=== PATIENT | male | born 1965 | race Hispanic/Latino ===

== ENCOUNTER 2017-04-11 07:08 | Observation (INO) | payer OTHER ==
--- NOTE | 2017-04-11 07:46 | ED PDOC ---
Arrival/HPI - General Time Seen by Provider: 04/11/17 07:41 Historian: Patient - History of Present Illness Narrative History of Present Illness (Text): 04/11/17 07:41 A 52 year old male, whose past medical history includes smoking, hypertension and hyperlipidemia, presents to the emergency department complaining of intermittent exertional chest pain since yesterday. Patient describes the pain as a pressure sensation. Patient denies any fever, chills, nausea, vomiting, diarrhea, abdominal pain, shortness of breath, cough or any other complaints. Patient reports he had a failed stress test done 1 week ago. PMD: Dr. Salazar Policy Adviser: Dr. Mason Time/Duration: Other (Yesterday) Symptom Course: Unchanged Quality: Other Context: Home Past Medical History - Provider Review Nursing Documentation Reviewed: Yes - Cardiac Hx Hypertension: Yes - Pulmonary Hx Respiratory Disorders: No - Neurological Hx Neurological Disorder: No - HEENT Hx HEENT Disorder: No - Renal Hx Renal Disorder: No - Endocrine/Metabolic Hx Endocrine Disorders: No - Hematological/Oncological Hx Blood Disorders: No - Integumentary Hx Dermatological Disorder: No - Musculoskeletal/Rheumatological Hx Musculoskeletal Disorders: No - Gastrointestinal Hx Gastrointestinal Disorders: Yes Hx Gastroesophageal Reflux: Yes - Genitourinary/Gynecological Hx Genitourinary Disorders: No - Psychiatric Hx Psychophysiologic Disorder: No Hx Depression: No Hx Emotional Abuse: No Hx Physical Abuse: No Hx Substance Use: No - Surgical History Hx Orthopedic Surgery: Yes - Suicidal Assessment Feels Threatened In Home Enviroment: No Family/Social History - Physician Review Nursing Documentation Reviewed: Yes Family/Social History: No Known Family HX Smoking Status: Heavy Smoker > 10 Cigarettes Daily Hx Alcohol Use: No Hx Substance Use: No Hx Substance Use Treatment: No Allergies/Home Meds Allergies/Adverse Reactions: Allergies No Known Allergies Allergy (Verified 04/11/17 07:19) Home Medications: Home Meds Medication Instructions Recorded Confirmed Aspirin [Aspir 81] 81 mg PO DAILY 05/09/12 04/11/17 Lansoprazole [Prevacid] 15 mg PO DAILY 11/13/16 04/11/17 Lisinopril [Zestril] 10 mg PO DAILY 11/13/16 04/11/17 Meloxicam [Mobic] 15 mg PO DAILY 11/13/16 04/11/17 Physical Exam - Physical Exam Narrative Physical Exam (Text): - Review of Systems Constitutional: Normal. absent: Fatigue, Weight Change, Fevers Eyes: Normal ENT: Normal Respiratory: Normal absent: SOB, Cough, Sputum Cardiovascular: (+) Chest pain absent: Palpitations, Syncope Gastrointestinal: Normal absent: Abdominal pain, Diarrhea, Nausea, Vomiting Genitourinary: Normal. absent: Dysuria, Frequency, Hematuria Musculoskeletal: Normal. absent: Arthralgias, Back Pain, Neck Pain Skin: Normal Neurological: Normal absent: Focal Weakness Endocrine: Normal Hemo/Lymphatic: Normal Psychiatric: Normal - Physical exam Patient appears age appropriate, speaking full sentences without difficulty - Systems Exam Head: Present: Atraumatic, Normocephalic Pupils: Present: PERRL Extraocular Muscles: Present: EOMI Conjunctiva: Present: Normal Mouth: Present: Moist Mucous Membranes Neck: Present: Normal Range of Motion. No: MIDLINE TENDERNESS, Paraspinal Tenderness Respiratory/Chest: Present: Clear to Auscultation, Good Air Exchange. No: Respiratory Distress, Accessory Muscle Use, Tachypnic Cardiovascular: Present: Regular Rate and Rhythm, Normal S1, S2, Peripheral Pulses Present. No: Murmurs Abdomen: Present: Normal Bowel Sounds, No: Tenderness, Peritoneal Signs, Rebound, Guarding, Distention Back: Present: Normal Inspection. No: Midline Tenderness, Paraspinal Tenderness Upper Extremity: Present: Normal Inspection. No: Cyanosis, Edema Lower Extremity: Present: Normal Inspection. No: Edema Neurological: Present: GCS=15, Speech Normal, cranial nerves II through XII fully intact with no cerebellar abnormality, neuro-sensory fully intact. No focal neurological deficits. Skin: Present: Warm, Dry, Normal Color. No: Rashes Lymphatic: Present: OX3, NI, NC Psychiatric: Present: Alert, Oriented x 3, Normal Insight, Normal Concentration Vital Signs Reviewed: Yes Vital Signs Temp Pulse Resp BP Pulse Ox 04/11/17 09:43 77 18 114/92 H 98 04/11/17 07:08 98.2 F 77 22 159/90 H 99 Temperature: Afebrile Blood Pressure: Hypertensive Pulse: Regular Respiratory Rate: Normal Appearance: Positive for: Well-Appearing, Non-Toxic, Comfortable Pain Distress: None Mental Status: Positive for: Alert and Oriented X 3 Medical Decision Making ED Course and Treatment: 04/11/17 07:41 Impression: A 52 year old male with intermittent exertional chest pressure. Physical exam unremarkable. Plan: -- Chest xray -- EKG -- Labs -- Aspirin and Nitroglycerin -- Reassess and disposition Progress Notes: EKG shows NSR at [address]-segment elevations, normal intervals. Interpreted by me. 04/11/17 09:29 Chest X-ray read and interpreted by me, which shows no cardiomegaly, no pneumothorax, no effusions. 04/11/17 09:[address] Salazar, accepted pt to his service for tele/obs, Dr. Ramos on consult. pt in no distress at this time, aware of and agrees with plan 04/11/17 10:[address] Ramos, who is aware of patients case. - Lab Interpretations Lab Results: 04/11/17 07:30 04/11/17 07:30 Lab Results 04/11/17 07:30: Sodium 141, Potassium 4.2, Chloride 106, Carbon Dioxide 27, Anion Gap 12, BUN 21, Creatinine 0.8, Est GFR ( Amer) > 60, Est GFR (Non- Af Amer) > 60, Random Glucose 106, Calcium 9.2, Total Bilirubin 0.5, AST 26, ALT 49, Alkaline Phosphatase 50, Lactate Dehydrogenase 391, Total Creatine Kinase 213, Troponin I < 0.01, NT-Pro-B Natriuret Pep 29.4, Total Protein 7.0, Albumin 4.2, Globulin 2.9, Albumin/Globulin Ratio 1.4 04/11/17 07:30: PT 10.4, INR 0.96, APTT 29.9 04/11/17 07:30: WBC 4.8, RBC 5.07, Hgb 15.4, Hct 44.4, MCV 87.6, MCH 30.4, MCHC 34.7, RDW 14.2, Plt Count 161, MPV 11.0, Gran % 61.6, Lymph % (Auto) 25.6, [place] % (Auto) 8.2 H, Eos % (Auto) 4.4, Baso % (Auto) 0.2, Gran # 2.94, Lymph # 1.2, [place] # 0.4, Eos # 0.2, Baso # 0.01 I have reviewed the lab results: Yes - RAD Interpretation Radiology Orders: 06/12/17 07:46 CHEST PORTABLE [RAD] Stat - Medication Orders Current Medication Orders: Sodium Chloride (Sodium Chloride 0.9%) 1,000 mls @ 100 mls/hr IV .Q10H DINAH Last Admin: 04/11/17 10:15 Dose: 100 mls/hr Discontinued Medications Aspirin (Aspirin Chewable) 324 mg PO STAT STA Stop: 04/11/17 07:46 Last Admin: 04/11/17 08:07 Dose: 324 mg Nicotine (Nicoderm Cq) 1 patch TD DAILY STA Stop: 04/11/17 07:49 Last Admin: 04/11/17 08:06 Dose: 1 patch Nitroglycerin (Nitrostat Sl Tab) 0.3 mg SL STAT STA Stop: 04/11/17 07:46 Last Admin: 04/11/17 08:07 Dose: 0.3 mg - Scribe Statement The provider has reviewed the documentation as recorded by the Jayla Gallardo Provider Scribe Attestation: All medical record entries made by the Scribguerline were at my direction and personally dictated by me. I have reviewed the chart and agree that the record accurately reflects my personal performance of the history, physical exam, medical decision making, and the department course for this patient. I have also personally directed, reviewed, and agree with the discharge instructions and disposition. Disposition/Present on Arrival - Present on Arrival Any Indicators Present on Arrival: No History of DVT/PE: No History of Uncontrolled Diabetes: No Urinary Catheter: No History Surgical Site Infection Following: None - Disposition Have Diagnosis and Disposition been Completed?: Yes Diagnosis: Chest pain Disposition: HOSPITALIZED Disposition Time: 09:36 Patient Plan: Observation Patient Problems: Current Active Problems Problem Status Onset Chest pain Acute Condition: FAIR
[2017-04-11 08:10] LABS: ADD MANUAL DIFF? NO
[2017-04-11 08:14] LABS: BASO # 0.01 K/mm3 (0.0-2.0); BASO % 0.2 % (0.0-3.0); EOS # 0.2 (0.0-0.7); EOS % 4.4 % (1.5-5.0); GRAN # 2.94 (1.4-6.5); GRAN % 61.6 % (50.0-68.0); HEMATOCRIT 44.4 % (42.0-52.0); LYMPH # 1.2 (1.2-3.4); LYMPH % 25.6 % (22.0-35.0); MEAN CELL VOLUME 87.6 fL (80.0-105.0); MEAN CORPUSCULAR HEMOGLOBIN 30.4 pg (25.0-35.0); MEAN CORPUSCULAR HGB CONC 34.7 g/dl (31.0-37.0); MONO # 0.4 (0.1-0.6); MONO % 8.2 % (1.0-6.0); PLATELET COUNT 161 10^3/uL (120.0-450.0); RED CELL DISTRIBUTION WIDTH 14.2 % (11.5-14.5); WHITE BLOOD COUNT 4.8 10^3/ul (4.5-11.0)
[2017-04-11 08:22] LABS: ALB/GLOB RATIO 1.4 (1.1-1.8); ALKALINE PHOSPHATASE 50 U/L (38-133); ALT/SGPT 49 U/L (7-56); AST/SGOT 26 U/L (15-59); BILIRUBIN,TOTAL 0.5 mg/dL (0.2-1.3); BLOOD UREA NITROGEN 21 mg/dL (7-21); CALCIUM 9.2 mg/dL (8.4-10.5); CARBON DIOXIDE 27 mmol/L (21-33); CHLORIDE 106 mmol/L (98-107); GFR AFRICAN-AMERICAN > 60; GLUCOSE,RANDOM 106 mg/dL (70-110); INR 0.96 (0.93-1.08); PARTIAL THROMBOPLASTIN TIME 29.9 Seconds (23.7-30.8); POTASSIUM 4.2 mmol/L (3.6-5.0); SODIUM 141 mmol/L (132-148)
[2017-04-11 08:34] LABS: TROPONIN I < 0.01 ng/mL
--- NOTE | 2017-04-11 09:51 | RAD ---
HISTORY: cough COMPARISON: 12/05/2013 FINDINGS: LUNGS: No active pulmonary disease. PLEURA: No significant pleural effusion identified, no pneumothorax apparent. CARDIOVASCULAR: Normal. OSSEOUS STRUCTURES: No significant abnormalities. VISUALIZED UPPER ABDOMEN: Normal. OTHER FINDINGS: None. IMPRESSION: No active disease.
[2017-04-11] MEDS: Sodium Chloride 0.9% 1,000 ML IV SCH (10:15)
[2017-04-11 12:42] VITALS: O2SAT 96
--- NOTE | 2017-04-11 14:59 | CARD ---
APPROVED REPORT EKG Measurement Heart [id number] [place] [id number] [id number] <Conclusion> Normal sinus rhythm Normal ECG
[2017-04-11] MEDS ORDERED: Enoxaparin 120 mg Syringe SC STA (15:04)
[2017-04-11 16:41] VITALS: BMI 39.4
[2017-04-11] MEDS ORDERED: Pneumococcal 23-Valent Vaccine IM ONE (16:41)
--- NOTE | 2017-04-11 17:53 | HP ---
HISTORY OF PRESENT ILLNESS: The patient is a 52-year-old male with past medical history of hypertens ion and hypercholesterolemia, who presents to the Emergency Department today with exertional chest pa in of one day's duration, which is intermittent and nonradiating. There is no nausea, no vomiting, n o diaphoresis. The patient had a stress test done on 04/06/2017 which was abnormal and showed partiall y reversible distal anterior/apical and basal inferior defects suspicious for ischemia. The patient will be admitted to telemetry for further evaluation and management. PAST MEDICAL HISTORY: Includes hypertension, hypercholesterolemia, COPD, asthma and gastroesophageal reflux disease. PAST SURGICAL HISTORY: Includes kidney stones in the past. CURRENT MEDICATIONS: Include lisinopril 5 mg daily, Prevacid 30 mg daily, and Dulera 100/5 one inhal ation twice daily. ALLERGIES: The patient has no known drug allergies. SOCIAL HISTORY: The patient has a history of 2-3 packs per day tobacco use for the past 30 years. H e quit alcohol approximately 7-8 years ago. The patient is independent with ADLs and IADLs and lives with his family. REVIEW OF SYSTEMS: Essentially negative other than above. He has no fever, no chills, no cough. Oc casional wheezing, mild dyspnea on exertion. No PND, no orthopnea, no edema, no rash, no nausea, no vomiting, no diarrhea, no abdominal pain, no jaundice. PHYSICAL EXAMINATION: GENERAL: The patient is a well-developed, obese male in no acute distress. VITAL SIGNS: Blood pressure 114/92, pulse 77, temperature 98.2, respiratory rate 18. HEENT: Head is normocephalic, atraumatic. Pupils equal, round, and reactive to light. Extraocular movements intact. NECK: Supple, with no thyromegaly, no carotid bruit. LUNGS: Clear. HEART: Regular rate and rhythm with no murmurs, rubs or gallops. ABDOMEN: Soft, obese, nontender, bowel sounds are normoactive. EXTREMITIES: Without cyanosis, clubbing, or edema. NEUROLOGIC: The patient is awake and oriented x 3 without focal sensory or motor deficits. SKIN: Warm and dry. LABORATORY DATA: WBC is 4.8, hemoglobin 15.4, hematocrit 44.4. Sodium 141, potassium 4.2, chloride 106, CO2 of 27, BUN 21, creatinine 0.8, glucose 106. Troponin is less than 0.01. Chest x-ray shows no active disease. IMPRESSION: 1. Unstable angina or probable coronary artery disease. 2. Chronic obstructive pulmonary disease/asthma. 3. Hypertension. 4. Hypercholesterolemia. 5. Obesity. 6. Tobacco abuse. PLAN: The patient will be admitted to telemetry unit for further evaluation and management. Cardiol ogy consultation with Dr. Mason/Dr. Ramos for probable cardiac catheterization. Dilshad Salazar JD, MD cc: [id number] TT: 04/11/2017 17:53:00
[2017-04-12 06:00] LABS: ADD MANUAL DIFF? NO
[2017-04-12 06:06] LABS: BASO # 0.01 K/mm3 (0.0-2.0); BASO % 0.2 % (0.0-3.0); EOS # 0.2 (0.0-0.7); EOS % 4.6 % (1.5-5.0); GRAN # 2.66 (1.4-6.5); GRAN % 53.2 % (50.0-68.0); HEMATOCRIT 42.3 % (42.0-52.0); LYMPH # 1.6 (1.2-3.4); LYMPH % 31.8 % (22.0-35.0); MEAN CELL VOLUME 87.9 fL (80.0-105.0); MEAN CORPUSCULAR HEMOGLOBIN 29.7 pg (25.0-35.0); MEAN CORPUSCULAR HGB CONC 33.8 g/dl (31.0-37.0); MEAN PLATELET VOLUME 10.8 fl (7.0-11.0); MONO # 0.5 (0.1-0.6); MONO % 10.2 % (1.0-6.0); PLATELET COUNT 145 10^3/uL (120.0-450.0); RED CELL DISTRIBUTION WIDTH 14.2 % (11.5-14.5)
[2017-04-12] MEDS: Sodium Chloride 0.9% 1,000 ML IV SCH ×2 (06:18→06:24)
[2017-04-12] MEDS ORDERED: Lidocaine 2% Inj (20ml) ONE (06:24)
[2017-04-12] MEDS ORDERED: Iohexol 350mgl/ml 50 ML ONE (06:26)
[2017-04-12] MEDS ORDERED: Nitroglycerin 50mg in D5W 50 MG/250 ML BOTTLE IV ONE (06:26)
[2017-04-12] MEDS ORDERED: Atropine 0.4 mg/ml Inj (1 mL) ONE (06:26)
[2017-04-12] MEDS ORDERED: Iodixanol 320 MG/ML 100 ML BOTTLE IV ONE (06:26)
[2017-04-12] MEDS ORDERED: Iodixanol 320 MG/ML 200 ML BOTTLE IV ONE (06:26)
[2017-04-12] MEDS ORDERED: Phenylephrine 10 mg/ml Inj ONE (06:27)
[2017-04-12 06:50] LABS: ALB/GLOB RATIO 1.4 (1.1-1.8); ALKALINE PHOSPHATASE 60 U/L (38-133); ALT/SGPT 45 U/L (7-56); AST/SGOT 22 U/L (15-59); BILIRUBIN,TOTAL 0.4 mg/dL (0.2-1.3); BLOOD UREA NITROGEN 16 mg/dL (7-21); CALCIUM 8.8 mg/dL (8.4-10.5); CARBON DIOXIDE 24 mmol/L (21-33); CHLORIDE 109 mmol/L (98-107); CHOLESTEROL 210 mg/dL (130-200); GFR AFRICAN-AMERICAN > 60; GLUCOSE,RANDOM 99 mg/dL (70-110); MAGNESIUM 1.9 mg/dL (1.7-2.2); PHOSPHOROUS 3.6 mg/dL (2.5-4.5); POTASSIUM 4.3 mmol/L (3.6-5.0); SODIUM 141 mmol/L (132-148); TOTAL PROTEIN 6.6 g/dL (5.8-8.3)
[2017-04-12] MEDS ORDERED: Midazolam 2 MG/2 ML VIAL ONE (07:12)
--- NOTE | 2017-04-12 08:07 | CON ---
DATE: 04/11/2017 REASON FOR CONSULTATION AND FOLLOWUP: Unstable angina, acute coronary syndrome. BRIEF CLINICAL HISTORY: This is a 52-year-old morbidly obese male with a body mass index 40 kg/m2, a ctive tobacco abuse, history of hypertension, hyperlipidemia, complaining of chest pain for 1-2 month s' duration. The patient recently underwent a stress test in [facility] that was abnorma l, so the patient is scheduled for elective cardiac cath and possible angioplasty next week. The pat rogerio came in today because of the chest pain. He said that yesterday he took . This morning, t he patient woke up with the chest and came to the Emergency Room. PAST MEDICAL HISTORY: Is significant for hypertension, hyperlipidemia, obesity. SOCIAL HISTORY: Active tobacco abuse. CURRENT MEDICATIONS: The patient is taking Meloxicam, lisinopril, Prevacid, aspirin. RECENT CARDIAC WORKUP FOLLOWS: The patient had a stress test on 04/06/2017, that shows probably a bnormal myocardial perfusion, partially reversible anterior defect, apical and inferior defects suspicious for ischemia, ejection fraction reported as 55%. REVIEW OF SYSTEMS: A 14 point review of systems as per HPI. PHYSICAL EXAMINATION: VITAL SIGNS: Temperature afebrile, heart rate 85, blood pressure /75. HEENT: PERRLA. Extraocular muscles intact. NECK: Supple. No carotid bruits. No thyromegaly. CHEST: Clear to auscultation. HEART: S1, S2 regular. ABDOMEN: Soft. EXTREMITIES: Clubbing and cyanosis negative. LABORATORY DATA: Blood workup as follows: WBC 4.8, hemoglobin , hematocrit 44.4, platelet coun t 161. Chemistry shows sodium 141, potassium 4.0, chloride 106, carbon dioxide 27, anion gap of 12, BUN 21, creatinine 0.8. Coagulation profile: INR 0.96, PT 10.4, PTT 29.9. IMPRESSION: Acute coronary syndrome, unstable angina, diabetes, hypertension, hyperlipidemia, , obesity, active tobacco abuse. RECOMMENDATION: Continue Plavix and aspirin and give one dose of Lovenox and keep n.p.o. after 12:00 midnight for cardiac catheterization tomorrow. The risks, benefits and alternatives were discussed with the patient. The patient cardiac catheterization. The patient had a recent stress test t hat was abnormal. Will follow. Thank you, Dr. Salazar, for providing me the opportunity in taking care of the patient Rekha Ramos MD cc: [id number] TT: 04/11/2017 20:12:36 Confirmation # [id number] Dictation # [id number] dn
[2017-04-12] MEDS ORDERED: Bacitracin 500 Units/gm Oint Foilpak UD TOP ONE (08:17)
[2017-04-12] MEDS ORDERED: Sodium Chloride 0.9% 1,000 ML IV SCH (08:30)
--- NOTE | 2017-04-12 08:39 | CARD ---
APPROVED REPORT Procedure(s) performed: Left Heart Catheterization HISTORY The patient is a 52 year-old male with a history of : most recent EF: 65%. (EF Method: RADIONUCLIDE), chronic lung disease, hypertension , dyslipidemia . INDICATION The indication(s) include : positive stress test, unstable angina . CASE TECHNIQUE The patient was brought urgently to the Cardiac Catheterization Laboratory in a fasting state and was prepped and draped in a sterile manner. The left wrist was infiltrated with 2% Lidocaine subcutaneous anesthesia. A 6 Fr Glidesheath (Radial) sheath was inserted into the left radial artery without difficulty. Coronary angiography was performed using coronary diagnostic catheters. The left coronary system was accessed and visualized with a Diagnostic ,5 Fr JL 4 catheter. The right coronary system was accessed and visualized with a Diagnostic ,5 Fr JR 4 catheter. The left ventricle was accessed and visualized with a 5 Fr Pigtail 145 (Angled) catheter. Left ventricular/Aortic Valve gradient assessed on pullback. Left ventriculogram was performed in HORN projection. Closure device was deployed with a Fr TR Band (Large) without any complications. The patient tolerated the procedure well and there were no complications associated with the procedure. Vessel Analysis The patient's coronary anatomy is co-dominant. The left main coronary artery is a large size vessel with intimal irregularities. The left main bifurcates to the left anterior descending and circumflex. The left anterior descending artery is a medium size vessel with diffuse calcification noted throughout this vessel and without significant stenosis. There is a 30% stenosis in the distal segment. Diffusely Diseased but no flow limiting stenosis The first diagonal branch is a medium size vessel with diffuse calcification noted throughout this vessel and without significant stenosis. There is a 55-60% stenosis in the ostial segment. The circumflex artery is a large size vessel with diffuse calcification noted throughout this vessel and without significant stenosis. The first obtuse marginal branch is a medium size vessel with diffuse calcification noted throughout this vessel and without significant stenosis. The second obtuse marginal branch is a medium size vessel with diffuse calcification noted throughout this vessel and without significant stenosis. The left posterior descending artery is a large size vessel with intimal irregularities. The right coronary artery is a large size vessel with intimal irregularities. The right posterior descending artery is a medium size vessel with diffuse calcification noted throughout this vessel and without significant stenosis. The right posterolateral branch is a medium size vessel with diffuse calcification noted throughout this vessel and without significant stenosis. Left Ventricle The left ventricle is normal in size with normal contractility. There was no cardiomyopathy. The left ventricular ejection fraction is estimated to be 55-60%. The left ventricular end diastolic pressure is 20-25 mmHg. Respiratory Variation There was no gradient across the aortic valve upon pullback. Conclusion Nomn Obstructive CAD Limited to Distal LAD 30% diffusely diseased and D1 Ostial 55-60% stenosis. Preservd LV Fx. Ef-55-60%, EDP-20-25 with respiratory varation. Recommendations Smoking Cessation Cardiac Rehabilitation Referral Aggressive Medical TherapyCardiac Risk Reduction Program Weight Loss Reduction Program ASA/ Statin. CC; Christen Garza / Isabella.
[2017-04-12] MEDS ORDERED: Pneumococcal 23-Valent Vaccine IM ONE (10:10)
[2017-04-12] MEDS ORDERED: Bacitracin 500 Units/gm Oint Foilpak UD ONE (10:34)
--- NOTE | 2017-04-12 10:34 | PN ---
DATE: 04/12/2017 REASON FOR CONSULTATION AND FOLLOWUP: Unstable angina, acute coronary syndrome, abnormal stress test. BRIEF CLINICAL HISTORY: A 52-year-old morbidly obese male with past medical history significant for obesity, body mass index 40 kg/m2, active tobacco abuse, 2-1/2 packs, hypertension, hyperlipidemia, c omplains of chest pain 1-2 months, underwent a stress test that was abnormal, so patient yesterday ca me in with chest pain. The patient underwent this morning cardiac catheterization that revealed nono bstructive coronary artery disease limited to diagonal 2 with 50% stenosis, distal LAD 20%-30% diffus e disease, no flow obstructive stenosis noted. Medical treatment recommended. Ejection fraction 55% -60%. Cardiac catheterization was done through the left radial approach. He denies any chest pain. PHYSICAL EXAMINATION: VITAL SIGNS: Temperature afebrile, heart rate 78, blood pressure 127/88. HEENT: PERRLA. Extraocular muscles intact. NECK: Supple. No carotid bruits. No thyromegaly. CHEST: Clear to auscultation. HEART: S1, S2 regular. ABDOMEN: Soft. EXTREMITIES: Clubbing, cyanosis negative. LABORATORY DATA: Blood workup as follows: WBC 5, hemoglobin , hematocrit 42.0, platelet count 145. Chemistry shows sodium 141, potassium , chloride 109, carbon dioxide 24, anion gap of 12, BUN 16, creatinine 0.8. TSH 1.27. Triglycerides over 60, cholesterol 200, LDL 140, HDL 26. IMPRESSION: Acute coronary syndrome, unstable angina, hyperlipidemia, morbid obesity, body mass inde x 40 kg/m2, abnormal stress test, hypertension, hyperlipidemia, status post cardiac catheterization, nonobstructive coronary artery disease, limited only to diagonal 2 and distal left anterior descendin g 30% stenosis. RECOMMENDATION: Aggressive medical treatment, emphasis on weight reduction. Emphasis on modified li festyle. Emphasis on complete cessation of smoking. Will put Lipitor, aspirin, atorvastatin, metopr olol and Zestril and complete cessation of smoking. Will discuss with Dr. Salazar. Thank you, Dr. Salazar, for providing the opportunity in taking care of the patient. Rekha Ramos MD cc: [id number] TT: 04/12/2017 10:34:31 Confirmation # [id number] Dictation # [id number] rn
[2017-04-12 11:51] VITALS: BP 161/85; PULSE 80; RESP 20; TEMP 98.5
--- NOTE | 2017-04-12 17:50 | DS ---
HOSPITAL COURSE: The patient is a 52-year-old male admitted through the Emergency Department on 03/31 with chest pain. The patient was seen in consultation by Dr. Mason/Richard. The patient underw ent cardiac catheterization on 04/11/2017, which showed nonobstructive coronary artery disease. The patient denies chest pain or shortness of breath at the present time and is medically stable for disc harge. PHYSICAL EXAMINATION: VITAL SIGNS: Blood pressure 161/85, temperature 98.5, pulse 80, respiratory rate 20. LUNGS: Clear. HEART: Regular rate and rhythm. ABDOMEN: Soft, nontender, bowel sounds are normoactive. EXTREMITIES: Without cyanosis, clubbing, or edema. NEUROLOGIC: The patient is awake and oriented x 3 without focal sensory or motor deficits. SKIN: Warm and dry. IMPRESSION: 1. Nonobstructive coronary artery disease/chest pain. 2. COPD/asthma. 3. Hypertension. 4. Hypercholesterolemia. 5. Obesity. 6. Tobacco abuse. PLAN: The patient will be discharged to home today in stable condition on the following medications: Metoprolol tartrate 25 mg twice daily, Lipitor 40 mg daily, Ecotrin 81 mg daily and lisinopril 10 m g daily. He will be maintained on a heart-healthy diet, activities ad libitum and he will be followe d up in my office in approximately 1-2 weeks, as well as by Dr. Mason and Dr. Ramos. Dilshad Salazar JD, MD cc: [id number] TT: 04/12/2017 17:49:11 wi
== END 2017-04-12 12:02 | disposition home or self-care (01) ==
LOC: ED 07:08 → ERH 09:45 → 2RNO 18:18 → 2RSO 04-12 08:33
PROVIDERS: ADMIT Internal Medicine; ATTEND Internal Medicine
DX: I25.110 Atherosclerotic heart disease of native coronary artery with unstable angina pectoris (principal); J44.9 Chronic obstructive pulmonary disease, unspecified; J45.909 Unspecified asthma, uncomplicated; I10 Essential (primary) hypertension; E78.00 Pure hypercholesterolemia, unspecified; E66.01 Morbid (severe) obesity due to excess calories; Z68.41 Body mass index [BMI] 40.0-44.9, adult; E11.9 Type 2 diabetes mellitus without complications; E78.5 Hyperlipidemia, unspecified; I24.9 Acute ischemic heart disease, unspecified; K21.9 Gastro-esophageal reflux disease without esophagitis; Z79.1 Long term (current) use of non-steroidal anti-inflammatories (NSAID); Z79.82 Long term (current) use of aspirin; Z79.899 Other long term (current) drug therapy; Z87.442 Personal history of urinary calculi; F17.210 Nicotine dependence, cigarettes, uncomplicated; R40.2412 Glasgow coma scale score 13-15, at arrival to emergency department; R94.39 Abnormal result of other cardiovascular function study; Z23 Encounter for immunization
CPT/HCPCS: 36415; 71010; 80053; 80061; 82550; 83036; 83615; 83735; 83880; 84100; 84443; 84484; 85025; 85610; 85730; 90471; 90732; 93005; 93458; 96372; 99152; 99285; C1769; C1887; G0378; J1644; J1650; J2250; J3010; J7040; Q9967